=== PATIENT | female | born 1960 | race Caucasian/White ===

== ENCOUNTER 2020-06-08 08:30 | Outpatient (REF) | payer OTHER, SELFPAY ==
[2020-06-08 09:58] LABS: Anion Gap 13 (12-20); Blood Urea Nitrogen 18 mg/dL (9-16); Calcium 9.3 mg/dL (8.4-10.2); Carbon Dioxide 26 mmol/L (22-29); Chloride 104 mmol/L (96-108); Cholesterol 201 mg/dL; Estimated Glomerular Filt Rate > 60; Glucose Random 110 mg/dL (60-115); HDL Cholesterol 43 mg/dL; LDL Cholesterol Calculated 111 mg/dl; Potassium 4.3 mmol/L (3.3-5.1); Sodium 139 mmol/L (135-145); Triglycerides 238 mg/dL
== END 2020-06-08 08:31 | disposition home or self-care (01) ==
LOC: HO.LAB 08:30
PROVIDERS: PCP Internal Medicine; Visit Provider Internal Medicine
DX: E78.5 Hyperlipidemia, unspecified (principal); I10 Essential (primary) hypertension
CPT/HCPCS: 36415; 80048; 80061

== ENCOUNTER 2020-07-28 07:57 | Outpatient (REF) | payer OTHER, SELFPAY ==
[2020-07-28 08:59] LABS: Cholesterol 153 mg/dL; HDL Cholesterol 53 mg/dL; LDL Cholesterol Calculated 84 mg/dl; Triglycerides 83 mg/dL
== END 2020-07-28 07:58 | disposition home or self-care (01) ==
LOC: HO.LAB 07:57
PROVIDERS: PCP Internal Medicine; Visit Provider Internal Medicine
DX: E78.2 Mixed hyperlipidemia (principal)
CPT/HCPCS: 36415; 80061

== ENCOUNTER 2021-06-14 08:09 | Outpatient (REF) | payer OTHER, SELFPAY ==
[2021-06-14 09:05] LABS: Anion Gap 13 (12-20); Blood Urea Nitrogen 16 mg/dL (9-16); Calcium 9.6 mg/dL (8.4-10.2); Carbon Dioxide 27 mmol/L (22-29); Chloride 104 mmol/L (96-108); Estimated Glomerular Filt Rate > 60; Glucose Random 102 mg/dL (60-115); Potassium 4.1 mmol/L (3.3-5.1); Sodium 140 mmol/L (135-145)
== END 2021-06-14 08:10 | disposition home or self-care (01) ==
LOC: HO.LAB 08:09
PROVIDERS: PCP Internal Medicine; Visit Provider Internal Medicine
DX: Z00.00 Encounter for general adult medical examination without abnormal findings (principal); I10 Essential (primary) hypertension
CPT/HCPCS: 36415; 80048

== ENCOUNTER 2021-12-27 07:57 | Outpatient (REF) | payer OTHER, SELFPAY ==
--- NOTE | ~2021-12-27 | US_ITS ---
EXAMINATION: US VENOUS ULTRASOUND WITH DOPPLER LOWER EXTREMITY, BILATERAL CLINICAL INDICATION: Bilateral lower extremity varicose veins. COMPARISON: None. TECHNIQUE: Color flow triplex imaging and compression Doppler was performed to evaluate both the deep and the superficial systems of lower extremities, bilaterally. To evaluate the superficial system, the examination was performed in the upright position. Color-flow Doppler ultrasound and compression ultrasound were utilized. In addition, maneuvers were utilized to demonstrate reflux. FINDINGS: RIGHT: 1. DEEP VENOUS DOPPLER ULTRASOUND: Common Femoral Vein: Compressible, normal respiratory variation and augmented flow. Femoral vein: Compressible, normal color flow and augmentation. Popliteal Vein: Compressible, normal augmentation. Deep Reflux: There is no evidence of reflux in the deep system in either the common femoral vein or the popliteal vein. There is no evidence of a Moreland's cyst. 2. SUPERFICIAL VENOUS DOPPLER ULTRASOUND: GREAT SAPHENOUS VEIN: Saphenofemoral junction: 0.3 cm; No evidence of reflux. Proximal thigh: 0.3 cm; No evidence of reflux. Mid thigh: 0.3 cm; No evidence of reflux. Above knee: 0.3 cm; No evidence of reflux. At knee: 0.3 cm; No evidence of reflux. Below knee: 0.3 cm; No evidence of reflux. Mid calf: 0.2 cm; No evidence of reflux. Ankle: 0.2 cm; No evidence of reflux. DUPLICATED GREAT SAPHENOUS VEIN: None SMALL SAPHENOUS VEIN: Saphenopopliteal junction: 0.1 cm; No evidence of reflux. Mid calf: 0.1 cm; No evidence of reflux. Distal calf: 0.1 cm; No evidence of reflux. VEIN OF GIACOMINI: None Imaged. PERFORATORS: None Imaged VARICOSITIES: None Imaged LEFT: 1. DEEP VENOUS DOPPLER ULTRASOUND: Common Femoral Vein: Compressible, normal respiratory variation and augmented flow. Femoral vein: Compressible, normal color flow and augmentation. Popliteal Vein: Compressible, normal augmentation. Deep Reflux: There is no evidence of reflux in the deep system in either the common femoral vein or the popliteal vein. There is no evidence of a Moreland's cyst. 2. SUPERFICIAL VENOUS DOPPLER ULTRASOUND: GREAT SAPHENOUS VEIN: Saphenofemoral junction: 0.7 cm; No evidence of reflux. Proximal thigh: 0.3 cm; No evidence of reflux. Mid thigh: 0.3 cm; No evidence of reflux. Above knee: 0.2 cm; No evidence of reflux. At knee: 0.3 cm; No evidence of reflux. Below knee: 0.2 cm; No evidence of reflux. Mid calf: 0.2 cm; No evidence of reflux. Ankle: 0.2 cm; No evidence of reflux. DUPLICATED GREAT SAPHENOUS VEIN: None SMALL SAPHENOUS VEIN: Saphenopopliteal junction: 0.1 cm; No evidence of reflux. Mid calf: 0.1 cm; No evidence of reflux. Distal calf: 0.2 cm; No evidence of reflux. VEIN OF GIACOMINI: None Imaged. PERFORATORS: Distal thigh: 0.1 cm; No evidence of reflux. VARICOSITIES: None Imaged US/US venous duplex LE BI IMPRESSION: No evidence of reflux.
== END 2021-12-27 07:58 | disposition home or self-care (01) ==
LOC: HO.US 07:57
PROVIDERS: Visit Provider Surgery Vascular Surgery
DX: I83.893 Varicose veins of bilateral lower extremities with other complications (principal)
CPT/HCPCS: 93970

== ENCOUNTER 2022-06-21 07:57 | Outpatient (REF) | payer OTHER, SELFPAY ==
[2022-06-21 08:39] LABS: Anion Gap 12 (12-20); Blood Urea Nitrogen 23 mg/dL (9-16); Calcium 9.2 mg/dL (8.4-10.2); Carbon Dioxide 28 mmol/L (22-29); Chloride 106 mmol/L (96-108); Estimated Glomerular Filt Rate > 60; Glucose Random 98 mg/dL (60-115); Potassium 3.2 mmol/L (3.3-5.1); Sodium 143 mmol/L (135-145)
== END 2022-06-21 07:58 | disposition home or self-care (01) ==
LOC: HO.LAB 07:57
PROVIDERS: Referring Provider Internal Medicine; Visit Provider Internal Medicine
DX: M54.2 Cervicalgia (principal); I10 Essential (primary) hypertension
CPT/HCPCS: 36415; 80048

== ENCOUNTER 2022-12-05 11:00 | Outpatient (RCR) | payer OTHER, SELFPAY | END 2022-12-05 12:11 | disposition home or self-care (01) | LOC: HO.PT 11:00 | PROVIDERS: PCP Internal Medicine; Visit Provider Internal Medicine | DX: M54.2 Cervicalgia (principal) | CPT/HCPCS: 97110; 97140; 97161; 97530 ==

== ENCOUNTER 2023-06-06 10:25 | Outpatient (AMB) | payer OTHER, SELFPAY ==
--- NOTE | 2023-06-06 10:34 | MHC.OFFVIS ---
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 Patient reports her pain has been going on for about a year and is a 8 on the 1-10 pain scale. She reports she is using advil with a little relief. The patient describes her pain as sharp in nature. Most of the pain is along the lateral aspect of her left shoulder. She states that she experiences sharp pain in her left shoulder when her arm is in certain positions or when she tries to sleep on her right side. She has tried Tylenol and naproxen which gave her only mild relief. She has done physical therapy exercises which aggravated her pain. 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[facility] [place] Physical Exam Vital Signs: BMI result Body Mass Index 19.5 Extrem Other: Left shoulder examination shows slightly decreased range of motion when compared to her right shoulder, 4+ out of 5 strength with supraspinatus testing, positive impingement signs, tenderness over her acromioclavicular joint, no instability Results Reviewed Results Reviewed: X-rays of the patient's left shoulder show acromioclavicular joint narrowing as well as a type 3 acromion, no acute bony abnormalities Assessment & Plan Assessment & Plan (1) Left shoulder pain: Code(s): M25.512 - Pain in left shoulder Plan Ms. Zayas presents with progressively worsening left shoulder pain and weakness due to impingement syndrome and possible full-thickness rotator cuff tearing. Thus, I will send the patient for an MRI of her left shoulder for further evaluation. If she does have a full-thickness rotator cuff tear I will recommend surgical repair to optimize her future functional level. I will see her back after the MRI is completed to discuss the findings and treatment options. Feel free to call me at any time should questions regarding her orthopedic management arise. I spent 19 minutes in reviewing the patient's records and imaging studies, seeing the patient and documenting in the medical record. Orders: Orders XR shoulder LT min 2V Today M25.512 - Pain in left shoulder MR shoulder LT wo con Today M25.512 - Pain in left shoulder Coding Level of Care Code New Pt Level 2 (44599) Diagnoses Left shoulder pain M25.512
[2023-06-06 10:58] VITALS: BMI 19.5
== END 2023-06-06 11:29 | disposition home or self-care (01) ==
LOC: HO.HOS 10:31
PROVIDERS: PCP Internal Medicine; Visit Provider Orthopaedic Surgery
DX: M25.512 Pain in left shoulder (principal)
CPT/HCPCS: 99202

== ENCOUNTER 2023-06-06 11:33 | Outpatient (REF) | payer OTHER, SELFPAY ==
--- NOTE | ~2023-06-06 | XR_ITS ---
EXAMINATION: XR SHOULDER, LEFT CLINICAL INFORMATION: Pain COMPARISON: None available. TECHNIQUE: Two views of the left shoulder. FINDINGS: Visualized portions of the proximal humerus demonstrate no fracture. Humeral head demonstrates good articulation with the glenoid fossa. No significant degenerative changes of the shoulder. Visualized ribs and lung parenchyma are unremarkable. XR/XR shoulder LT min 2V IMPRESSION: Unremarkable radiographs of the left shoulder.
== END 2023-06-06 11:34 | disposition home or self-care (01) ==
LOC: HO.HOSX 11:33
PROVIDERS: Visit Provider Orthopaedic Surgery
DX: M25.512 Pain in left shoulder (principal)
CPT/HCPCS: 73030

== ENCOUNTER 2023-07-03 08:58 | Outpatient (REF) | payer OTHER, SELFPAY ==
--- NOTE | ~2023-07-03 | MR_ITS ---
EXAMINATION: MR SHOULDER WITHOUT CONTRAST, LEFT CLINICAL INFORMATION: Left shoulder pain. COMPARISON: None available. TECHNIQUE: MRI of the shoulder without contrast was performed on a high-field scanner. FINDINGS: ROTATOR CUFF: Mild undersurface fraying of the subscapularis tendon insertion. The rotator cuff is otherwise intact. There are 5 mm foci of low signal at the superficial aspect of both the subscapularis and infraspinatus tendon insertions with minimal adjacent edema compatible with calcific tendinitis. No muscle atrophy or fatty infiltration. BICEPS: Normal. CORACOACROMIAL ARCH: The undersurface of the acromion is curved with no subacromial spur. Degenerative cysts and marrow edema at the acromioclavicular joint. LABRUM/CAPSULE: Normal. GLENOHUMERAL JOINT/MARROW: Small degenerative cyst of the anterior humeral head. No joint effusion. MR/MR shoulder LT wo con IMPRESSION: 1. Subscapularis and infraspinatus calcific tendinitis. 2. Mild undersurface fraying of the subscapularis tendon insertion. The rotator cuff is otherwise intact. 3. Moderate acromioclavicular osteoarthritis.
== END 2023-07-03 08:59 | disposition home or self-care (01) ==
LOC: HO.MRI 08:58
PROVIDERS: PCP Internal Medicine; Visit Provider Orthopaedic Surgery
DX: M25.512 Pain in left shoulder (principal)
CPT/HCPCS: 73221

== ENCOUNTER 2023-07-19 14:39 | Outpatient (AMB) | payer OTHER, SELFPAY ==
[2023-07-19 14:47] VITALS: BMI 19.5
--- NOTE | 2023-07-19 14:47 | A.OFFVIS_ITS ---
Vital Signs 07/19/23 14:47 Height 5 ft 3 in Weight 110 lb BMI 19.5 Intake Visit Reasons: ov- MRI review Left shoulder Intake Note: Shauna is a 63 year old Right hand dominate female who presents for an MRI review of her Left shoulder. The patient states that her left shoulder pain is not constant. It has gotten somewhat better since her last visit. Continues to exercise as much as possible. 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 Physical Exam Vital Signs: BMI result Body Mass Index 19.5 Const Other: Well-nourished well-developed very friendly female awake alert and oriented x3 in no acute distress Extrem Other: Bilateral upper extremity examination shows good capillary refill, no skin lesions noted, normal sensation light touch Left shoulder examination shows almost full range of motion when compared to her right shoulder, 4+ out of 5 strength with supraspinatus testing, positive impingement signs, tenderness over her acromioclavicular joint, no instability Results Reviewed Results Reviewed: MRI of the patient's left shoulder show severe acromioclavicular joint narrowing, a type 3 acromion, signal change within the supraspinatus tendon most likely due to rotator cuff tendinosis Assessment & Plan Assessment & Plan (1) Impingement syndrome of left shoulder: Code(s): M75.42 - Impingement syndrome of left shoulder Category: Medical Plan Ms. Zayas presents with intermittent left shoulder pain due to impingement syndrome and acromioclavicular joint arthritis. I had a lengthy discussion with the patient regarding the treatment options. At this point the patient's symptoms are tolerable to her. The patient will follow-up on an as-needed basis should her symptoms worsen in any way. If the patient fails continued non operative treatments we will further discuss the risks and benefits of left shoulder surgery. That surgery would most likely involve left shoulder diagnostic arthroscopy with distal clavicle excision and acromioplasty. The patient will continue with her range of motion exercises in the meantime to prevent stiffness. Feel free to call me at any time should questions regarding her orthopedic management arise. I spent 19 minutes in reviewing the patient's records and imaging studies, seeing the patient and documenting in the medical record.
== END 2023-07-19 15:18 | disposition home or self-care (01) ==
PROVIDERS: PCP Internal Medicine; Visit Provider Orthopaedic Surgery
DX: M75.42 Impingement syndrome of left shoulder (principal)
CPT/HCPCS: 99212

== ENCOUNTER → 2023-07-19 14:39 | Outpatient (BNVA) | payer OTHER, SELFPAY | PROVIDERS: PCP Internal Medicine; Visit Provider Orthopaedic Surgery ==

== ENCOUNTER 2023-09-17 09:32 | Emergency (ER) | payer OTHER, SELFPAY ==
[2023-09-17 09:49] VITALS: BP 132/74; PULSE 58; RESP 14; TEMP 36.6; O2SAT 98; BMI 20.4
--- NOTE | 2023-09-17 10:58 | ED_ITS ---
HPI - General Adult General Chief complaint: Ear Problems Stated complaint: Ear pain Time Seen by Provider: 09/17/23 10:01 Source: patient Mode of arrival: ambulatory Limitations: no limitations History of Present Illness ED Provider: Alonzo Ware PA-C HPI narrative: 63 yold femalewith pmh of high cholesterol and HTN Presents to the ED for coughing, nasal congestion, and bilateral ear pain with right ear pain worse than the left ear pain. Patient recently traveled from the [place] on vacation. Patient denies any recent trauma, or swimming. Patient admits to eating wishes sounds and right ear. Patient did state she flu and the pain but negative for any bleeding from the ear. Patient denies placing Q-tip in the ear to cause any bleeding. Patient denies any chest pain, shortness of breath, pleurisy, leg swelling, calf pain, coughing up blood, slurred speech, facial droop, paralysis of extremities, loss of vision, or dizziness. Patient states slight nausea that resolved. Related Data Home Medications ?Medication ?Instructions ?Recorded ?Confirmed estradiol 0.0375 mg/24 hr patch transdermal 06/06/23 07/20/23 semiweekly transdermal patch (Nusrat) lisinopril 10 1 tab PO DAILY 06/06/23 07/20/23 mg-hydrochlorothiazide 12.5 mg tablet naproxen 500 mg tablet 500 mg PO BID 06/06/23 07/20/23 rosuvastatin 10 mg tablet 10 mg PO BEDTIME 06/06/23 07/20/23 Previous Rx's ?Medication ?Instructions ?Recorded amoxicillin 875 mg-potassium 1 tab PO Q12H 10 days #20 tabs 09/17/23 clavulanate 125 mg tablet Allergies Allergy/AdvReac Type Severity Reaction Status Date / Time codeine Allergy Mild Nausea Verified 09/17/23 09:51 Review of Systems Review of Systems: Bilateral ear pain, whooshing sound in right ear, dry cough, nasal congestion, chills Yes all other systems are reviewed and are negative [facility] Past Medical History Surgical History Hx of section History of hysterectomy (Unknown) Social History Social History Advance Directives: No Advance Directives Information Provided: No Do you have a plan to hurt others: No Plan 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 Physical Exam ED Vital Signs: Vital Signs - 24 hr 09/17/23 09:49 09/17/23 11:40 Temperature 97.8 F 97.7 F Pulse Rate 58 61 Respiratory Rate 14 16 Blood Pressure 132/74 145/77 H Pulse Oximetry 98 98 Oxygen Delivery Method Room Air Room Air BMI result Body Mass Index 20.4 Const General: cooperative, healthy appearing, comfortable, no acute distress, well developed, alert and awake Orientation/consciousness: patient oriented x3 HENGA Head: Yes normal to inspection, Yes No palpable skull fracture present, Yes normocephalic and Yes atraumatic Ears: hearing grossly normal bilaterally, external ears normal, TM normal on the left, EAC's normal, mastoids normal, no periauricular adenopathy and TM abnormal erythematous on the right Throat: Yes posterior oropharynx normal, Yes tonsils normal and Yes uvula midline Eyes Other: negative nystagmus Neck Neck: Yes normal visual inspection, Yes full ROM, Yes no lymphadenopathy, Yes no meningeal signs, Yes trachea midline, Yes supple, No anterior neck swelling and No tender Chest Chest palpation & inspection: normal inspection of the chest and normal palpation of entire chest wall Resp Effort & Inspection: normal respiratory effort and able to speak in complete sentences Auscultation: clear to auscultation bilaterally Cardio Jugular venous distension: no JVD Heart sounds: S1 normal heart sound present and S2 normal heart sound present GI Inspection: Yes normal to inspection Palpation (GI): Soft to palpation, not firm, nontender, no guarding and not rigid General: No CVA tenderness Back/Spine/Pelvis Back: No CVA tenderness and No back tenderness Skin General skin exam: no rashes or lesions noted, elasticity normal and turgor normal Neuro Other: NIH score is 0. General: patient oriented x3, gait normal, tone normal, moves all extremities, Normal light touch and pain sensation, no meningeal signs, no focal motor deficits, CN's II-XI intact bilaterally and normal sensation to monofilament Extrem Other: bilateral lower extremity negative for swelling, pitting edema, or calf tenderness General: Yes normal to inspection, Yes full ROM and Yes capillary refill normal Psych Appearance: grossly normal, well kempt and not disheveled Medical Decision Making Medical Decision Making MDM Narrative: 63-year-old female history of high blood pressure high cholesterol presents to ED for dry cough, nasal congestion, and bilateral ear pain worse on the right. Presently negative for signs of stroke. Negative for signs of myocardial infarction or pulmonary embolus. positive for right ear tympanic membrane erythema. We will do COVID influenza RSV swab. 11:21am: Patient is positive for COVID. patient well-appearing. Patient also will be treated as otitis media. Patient explained worrisome signs and informed to follow-up immediately in the ER. Not suspecting PE or pneumonia. Not suspecting stroke. Not suspect myocarditis. Differential Diagnosis Differential Diagnoses: The differential diagnosis associated with the presentation includes ( COVID, influenza, RSV, otitis media) Lab Data [facility] Lab Attestation statement: I reviewed the patient's lab results. Labs: Lab Results 09/17/23 Range/Units 10:16 Influenza Type A (PCR) NEGATIVE (Negative) Influenza Type B (PCR) NEGATIVE (Negative) RSV RNA Qual (PCR) NEGATIVE (Negative) SARS-CoV-2 RNA (RT-PCR) POSITIVE A (Negative) Independent Historian Clinical information obtained from an independent historian. History obtained from or confirmed by: Other ( patient) External Record Review External record reviewed: Other ( prior visits) Prescription Management I considered prescription management with: Antibiotic Discharge Plan Discharge Clinical Impression: Otitis media, COVID-19 Patient Disposition: Home, Self-Care Instructions: Ear Infection (ED), COVID-19 (Coronavirus Disease 2019) (ED) Additional Instructions: you tested positive for COVID. Recommend rest at home and oral hydration. Return to the ED immediately for any chest pain, shortness of breath, coughing up blood, weakness, dizziness, severe ear pain, sore throat, drooling, change in voice, or any other concerning symptoms. Recommend follow-up with primary care provider Prescriptions: New amoxicillin-pot clavulanate 875-125 mg tablet 1 tab PO Q12H 10 Days Qty: 20 0RF No Action rosuvastatin 10 mg tablet 10 mg PO BEDTIME estradiol [Nusrat] 0.0375 mg/24 hr patch semiweekly transdermal lisinopril-hydrochlorothiazide 10-12.5 mg tablet 1 tab PO DAILY naproxen 500 mg tablet 500 mg PO BID Stand Alone Forms: Work/School Release Interventions: ED Discharge Assessment Last Done: 09/17/23 11:40 Discharge Date/Time: 09/17/23 11:42 Print Language: [place] Citizen
[2023-09-17 11:04] LABS: Influenza A PCR NEGATIVE (Negative); Influenza B PCR NEGATIVE (Negative); Resp Syncy Virus RNA Qual PCR NEGATIVE (Negative); SARS COV2 PCR INHOUSE POSITIVE (Negative)
[2023-09-17 11:40] VITALS: BP 145/77; PULSE 61; RESP 16; TEMP 36.5; O2SAT 98
== END 2023-09-17 11:42 | disposition home or self-care (01) ==
PROVIDERS: Physician Assistant; Emergency Provider Emergency Medicine; PCP Internal Medicine
DX: U07.1 COVID-19 (principal); H92.03 Otalgia, bilateral; H66.93 Otitis media, unspecified, bilateral; R09.81 Nasal congestion; Z79.899 Other long term (current) drug therapy
CPT/HCPCS: 0241U; 99283

== ENCOUNTER 2023-10-11 09:22 | Outpatient (REF) | payer OTHER, SELFPAY ==
[2023-10-11 10:12] LABS: MANUAL DIFF FLAG NO
[2023-10-11 10:56] LABS: Basophils Absolute Auto 0.1 X10*3/uL (0.0-0.2); Basophils Percent Auto 1.5 % (0-2); Eosinophils Absolute Auto 0.2 X10*3/uL (0.0-0.4); Eosinophils Percent Auto 2.5 % (0-4); Hematocrit 40.8 % (37.0-47.0); Hemoglobin 13.8 g/dl (12.0-16.0); Imm Gran Abs Auto 0.03 X10*3/uL (0.00-0.03); Imm Gran Pct Auto 0.4 % (0.0-0.4); Lymphocytes Absolute Auto 2.9 X10*3/uL (1.2-4.9); Lymphocytes Percent Auto 42.7 % (20-40); Mean Corpuscular HGB Conc 33.8 g/dl (31.0-35.0); Mean Corpuscular Hemoglobin 28.8 pg (27.0-33.0); Mean Platelet Volume 8.9 fL (9.4-12.3); Monocytes Absolute Auto 0.6 X10*3/uL (0.1-1.2); Monocytes Percent Auto 8.2 % (2-11); Neutrophils Percent Auto 44.7 % (45-73); Platelet Count 255 X10*3/uL (160-400); White Blood Count 6.7 X10*3/uL (4.8-10.8)
[2023-10-11 11:08] LABS: Estimated Average Glucose 117 mg/dL; Hemoglobin A1c % 5.7 % (<6.0)
[2023-10-11 11:39] LABS: Alanine Aminotransferase 22 U/L (0-31); Albumin Level 4.5 g/dL (3.5-5.0); Alkaline Phosphatase 49 U/L (39-117); Anion Gap 12 (12-20); Aspartate Amino Transferase 26 U/L (5-31); Bilirubin Total 0.6 mg/dL (0.0-1.0); Blood Urea Nitrogen 15 mg/dL (9-16); Calcium 9.8 mg/dL (8.4-10.2); Carbon Dioxide 28 mmol/L (22-29); Chloride 102 mmol/L (96-108); Cholesterol 172 mg/dL (<200); Estimated Glomerular Filt Rate > 60; Glucose Random 98 mg/dL (60-115); HDL Cholesterol 52 mg/dL (>40); Iron 74 mcg/dL (30-160); LDL Cholesterol Calculated 91 mg/dL (<100); Magnesium 2.2 mg/dL (1.6-2.6); Percent Iron Saturation 23 % (15-50); Potassium 3.8 mmol/L (3.3-5.1); Sodium 138 mmol/L (135-145); Total Iron Binding Capacity 323 mcg/dL (228-428); Total Protein 7.6 g/dL (6.5-8.0); Triglycerides 148 mg/dL (<150); Unsaturated Iron Binding 249 ug/dL
[2023-10-11 11:56] LABS: Ferritin 133 ng/mL (10-250); Vitamin D 25-OH Total 89.7 ng/mL (>30)
== END 2023-10-11 09:23 | disposition home or self-care (01) ==
LOC: HO.LAB 09:22
PROVIDERS: PCP Internal Medicine; Visit Provider Physician Assistant Medical
DX: Z00.00 Encounter for general adult medical examination without abnormal findings (principal); M79.671 Pain in right foot; Z13.0 Encounter for screening for diseases of the blood and blood-forming organs and certain disorders involving the immune mechanism; E78.5 Hyperlipidemia, unspecified; M85.80 Other specified disorders of bone density and structure, unspecified site; Z13.1 Encounter for screening for diabetes mellitus
CPT/HCPCS: 36415; 80053; 80061; 82306; 82728; 83036; 83540; 83735; 85025

== ENCOUNTER 2024-01-11 09:44 | Outpatient (REF) | payer OTHER, SELFPAY ==
[2024-01-15 00:23] LABS: A. Phagocytphilium DNA,RT-PCR NOT DETECTED (NOT DETECTED); Babesia Microti DNA, RT-PCR NOT DETECTED (NOT DETECTED); Borrelia Miyamotoi,DNA RT-PCR NOT DETECTED (NOT DETECTED); E.Chaffeensis DNA RT-PCR NOT DETECTED (NOT DETECTED); Lyme(Borrelia ssp)DNA RT-PCR NOT DETECTED (NOT DETECTED)
== END 2024-01-11 09:45 | disposition home or self-care (01) ==
LOC: HO.LAB 09:44
PROVIDERS: PCP Internal Medicine; Visit Provider Internal Medicine
DX: M79.10 Myalgia, unspecified site (principal)
CPT/HCPCS: 36415; 86618; 86666; 86753; 87468; 87469; 87478; 87484; 87798

== ENCOUNTER 2024-02-29 12:30 | Outpatient (AMB) | payer OTHER, SELFPAY ==
--- NOTE | 2024-02-29 13:05 | MHC.OFFWIV ---
Intake Vital Signs 02/29/24 13:06 Weight 128 lb BP 118/70 Blood Pressure Location Lt brachial Position Sitting Pulse 86 Pulse Source Pulse Oximeter Temp 98.6 F Temp Source Oral Pulse Oximetry (%) 98 Oxygen Delivery Method Room Air Intake Visit Reasons: EP cough 5 weeks Intake Note: Patient here for a productive cough. Patient Tobacco Use Status: Former Tobacco user Allergies codeine Allergy (Mild, Verified 02/29/24 13:17) Nausea Medication List - Last Reconciled 02/29/24 by Robert Hammer MD estradiol (Nusrat) patches transdermal lisinopril-hydrochlorothiazide 10-12.5 mg 1 tab PO DAILY naproxen 500 mg PO BID rosuvastatin 10 mg PO BEDTIME Do you need a note to return to daycare/school/sports/work: No HPI EP cough 5 weeks HPI Details 64-year-old female presents to the office for a sick visit. Patient complains of an irritating cough for the past 5 weeks. Nonproductive in nature. No associated shortness of breath. Come boyfriend recently came down with bronchitis. Nonsmoker. 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[facility] [place], Right hand dominate Physical Exam Vital Signs: Last Vital Signs Temp 98.6 F 02/29/24 13:06 Pulse 86 02/29/24 13:06 BP 118/70 02/29/24 13:06 Pulse Ox 98 02/29/24 13:06 Oxygen Delivery Method Room Air 02/29/24 13:06 Const General: cooperative and healthy appearing Nutritional Appearance: well nourished Orientation/consciousness: patient oriented x3 Limitations: no limitations HEENT Head: Yes normal to inspection Eyes General: appearance normal, both eyes and all related structures Neck Neck: Yes normal visual inspection Chest Chest palpation & inspection: normal palpation of entire chest wall Resp Effort & Inspection: normal respiratory effort Neuro General: patient oriented x3 Assessment & Plan Assessment & Plan (1) Cough: Code(s): R05.9 - Cough, unspecified Plan x-ray images personally reviewed by me. no infiltrate seen. Cough could be of infectious etiology. Antibiotics and prednisone called in. If symptoms do not improve to follow-up here. Orders: Orders XR chest 2V Today R05.9 - Cough, unspecified Coding Level of Care Code Est Pt Level 3 (34564) Diagnoses Cough R05.9
[2024-02-29 13:06] VITALS: BP 118/70; PULSE 86; TEMP 37; O2SAT 98
== END 2024-02-29 14:02 | disposition home or self-care (01) ==
PROVIDERS: PCP Internal Medicine; Visit Provider Internal Medicine
DX: R05.9 Cough, unspecified (principal)

== ENCOUNTER 2024-02-29 12:30 | Outpatient (REF) | payer OTHER, SELFPAY | END 2024-02-29 12:31 | disposition home or self-care (01) | LOC: HO.HMGCX 12:30 | PROVIDERS: PCP Internal Medicine; Visit Provider Internal Medicine | DX: R05.9 Cough, unspecified (principal) | CPT/HCPCS: 71046 ==

== ENCOUNTER 2024-06-04 09:06 | Outpatient (REF) | payer OTHER, SELFPAY ==
--- OUTSIDE RECORDS SUMMARY | 2024-06-04 10:00 | XMS_ITS | Patient Health Record ---
Author Organization [employer] [facility] Address [address] [address] Care Team Providers Care Chief Relay Tester Name Role Phone Ketan Steel MD Primary Care Provider Maribel Dodge Unavailable [phone] Allergies Allergen (clinical drug ingredient) Drug/Non Drug Allergy documented on EMR Reaction Allergy Type Onset Date Status codeine Codeine Nausea Drug Allergy Active Reason For Referral No Information Medications Medication SIG (Take, Route, Frequency, Duration) Notes Start Date End Date Status Rosuvastatin Calcium 10 MG Oral for 90 Active Lisinopril-hydroCHLOROthiaz gaudencio 10-12.5 MG 1 tablet Orally Once a day Active Multi Vitamin Active Estradiol 0.0375 MG/24HR 1 patch to skin Transdermal TWICE WEEKLY for 90 days 03/27/2023 Active Social History Tobacco Use: Social History Observation Description Date Details (start date - stop date) Former Smoker NA - NA AUDIT-C (Standard) Question Answer Notes Did you have a drink containing alcohol in the p ast year? No Points 0 Interpretation Negative Tobacco Control (Standard) Question Answer Notes Tobacco use: Former smoker How long has it been since you last smoked? Grea ter than 10 years Problems Problem Type SNOMED Code ICD Code Onset Dates Problem Status W/U Status Risk Notes Problem Menopause (963295108) Menopausal and female climacteric states (N95.1) Active confirmed Problem Benign essential hypertension (0393056) Essential hypertension, benign (401.1) Active confirmed Major Problem Dysplasia of cervix (45440388) Dysplasia of cervix, unspecified (622.10) Active confirmed Diag Problem Menopausal symptom (30287497) Symptomatic menopausal or female climacteric states (627.2) Active confirmed Diag Problem Gynecological examination normal (982603713235070) Routine gynecological examination (V72.31) Active confirmed Major Problem Screening for malignant neoplasm of colon (692193427) Special screening for malignant neoplasms, colon (V76.51) Active confirmed Major Vital Signs Temperature 97.9 degrees Fahrenheit 05/08/2024 Blood pressure diastolic 80 mm Hg 05/08/2024 Height 62.5 in 05/08/2024 Blood pressure systolic 122 mm Hg 05/08/2024 Weight 105 lbs 05/08/2024 BMI 18.9 kg/m2 05/08/2024 Encounters Encounter Location Date Provider Diagnosis [facility] [employer] [place] [address] [address] [place] [address] 05/08/2024 Maribel Sparrow Menopausal and female climacteric states N95.1 [place] [address] [address] [place] [address] 07/04/2023 Maribel Sparrow [facility] [email or web address] [address] 05/01/2024 Maribel Sparrow [facility] [place] [address] [address] [address] 05/08/2024 Maribel Sparrow Assessments Encounter Date Diagnosis (ICD Code) Assessment Notes Treatment Notes Treatment Clinical Notes Section Notes 05/08/2024 Menopausal and female climacteric states (ICD-10 - N95.1) DISCUSSED S/SX OF MENOPAUSE INCLUDING HOT FLASHES AND NIGHT SWEATS. I CANNOT EXPLAIN HER NON RESPONSE TO HIGHER DOSES OF ERT. DISCUSSED TX OPTIONS INCLUDING VEOZAH, ITS BENEFITS AND RISKS. AFTER THOROUGH DISCUSSION, PAT DECIDED NOT TO EVEN TRY VEOZAH. DISCUSSED REFERRAL TO [facility] FOR MORE THOROUGH EVALUATION OF HER MENOPAUSAL SYMPTOMS AND TX OPTIONS INCLUDING ERT. PAT AGREED. WE WILL REFER HER. Plan Of Treatment Pending Test Test Name Order Date MAMMOGRAM, SCREENING 03/09/2021 MAMMOGRAM, SCREENING 03/16/2022 MAMMOGRAM, SCREENING 03/27/2023 MAMMOGRAM, SCREENING 01/27/2015 Urinalysis 07/26/2017 BONE DENSITY 03/27/2023 MM Digital Mammo Screening 03/08/2020 MM Digital Mammo Screening 03/09/2021 MM Digital Mammo Screening 03/16/2022 MM Digital Mammo Screening 03/27/2023 Next Appt Details Provider Name:Maribel quiroz, 07/23/2024 01:40:00 PM, [address] [facility], [address], [place], [address], Insurance Providers Payer Name Payer Address Payer Phone Subscriber Number Group Number Insured Name Patient Relationship to Insured Coverage Start Date Coverage End Date [employer] [place] [address] [address] [place] [address] [id number] NATHALIA DOUGLAS Self - patient is the insured Medical (General) History Medical History History ICD Code Dysplasia of cervix uteri, unspecified N 87.9 Menopausal and female climacteric states N95.1 Essential (primary) hypertension I10 Hematocolpos N89.7 Hormone replacement therapy (postmenopau heaven) Z79.890 Other specified disorders of bone densit y and structure, multiple sites M85.89 Surgical History Surgery Date(Month/Year) Colonoscopy Hysterectomy x 2 [place] teeth Hospitalization History Reason Date(Month/Year) See Surgical Hx Child
--- OUTSIDE RECORDS SUMMARY | 2024-06-04 10:01 | XMS_ITS ---
Author Organization [employer] Address [address] [facility] [address] [place] [address] Care Team Providers Care Radiology Resident Name Role Phone Ketan Steel MD Primary Care Provider Maribel Dodge [phone] REASON FOR VISIT [facility] Encounters Encounter Location Date Provider Diagnosis [facility] [employer] [address] [facility] [address] [place] [address] 05/08/2024 Maribel Sparrow Plan Of Treatment Next Appt Details Provider Name:Maribel quiroz, 07/23/2024 01:40:00 PM, [address] [facility], [address], [place], [address], Progress Notes * JULIO CESAR DOUGLASADOB:1960 (64 yo F)Acc No.[id number]:05/08/2024 Patient:?VONDAPhamERICJULIO CESAR McintoshA :1960???Age:64 Y???Sex:Female Address:[address] [place], [address] * true * Date:? Generated for Alyi tiburcio/David/eTransmitting on:?06/04/2024 10:00 AM EST
--- OUTSIDE RECORDS SUMMARY | 2024-06-04 10:01 | XMS_ITS ---
Author Organization [facility] [employer] Address [address] [facility] [address] [place] [address] Care Team Providers Care Snack Foods Mixer Operator Name Role Phone Ketan Steel MD Primary Care Provider Maribel Dodge [phone] REASON FOR VISIT QUESTION ABOUT MEDS FOR HOTFLASHES Encounters Encounter Location Date Provider Diagnosis [facility] [employer] [address] [place] [address] 05/01/2024 Maribel Sparrow Plan Of Treatment Next Appt Details Provider Name:Maribel quiroz, 07/23/2024 01:40:00 PM, [address] [facility], [facility] [address], [place], [address], Progress Notes * JULIO CESAR DOUGLASADOB:1960 (64 yo F)Acc No.[id number]:05/01/2024 Patient:?VONDAPhamDARLENEJULIO CESARA :1960???Age:64 Y???Sex:Female Address:[address] [place] [address], [place] [address] * true * Date:? Generated for Macho dey/David/eTransmitting on:?06/04/2024 10:00 AM EST
--- OUTSIDE RECORDS SUMMARY | 2024-06-04 10:01 | XMS_ITS ---
Author Organization [employer] [facility] Address [address] [facility] [address] [place] [address] Care Team Providers Care Dry Wall Finisher Name Role Phone Ketan Steel MD Primary Care Provider Maribel Dodge Unavailable [phone] Allergies Allergen (clinical drug ingredient) Drug/Non Drug Allergy documented on EMR Reaction Allergy Type Onset Date Status codeine Codeine Nausea Drug Allergy Active REASON FOR VISIT VEOZAH TALK Medications Medication SIG (Take, Route, Frequency, Duration) Notes Start Date End Date Status Multi Vitamin Active Estradiol 0.0375 MG/24HR 1 patch to skin Transdermal TWICE WEEKLY for 90 days 03/27/2023 Active Rosuvastatin Calcium 10 MG Oral for 90 Active Lisinopril-hydroCHLOROthiaz gaudencio 10-12.5 MG 1 tablet Orally Once a day Active Social History Tobacco Use: Social History [...] Status W/U Status Risk Notes Problem Menopause (096210245) Menopausal and female climacteric states (N95.1) Active confirmed Vital Signs Height 62.5 in 05/08/2024 Weight 105 lbs 05/08/2024 BMI 18.9 kg/m2 05/08/2024 Blood pressure systolic 122 mm Hg 05/08/19 25 Blood pressure diastolic 80 mm Hg 025 Temperature 97.9 degrees Fahrenheit 05/08/19 25 Encounters Encounter Location Date Provider Diagnosis [facility] [address] [facility] [address] [place] [address] 05/08/2024 Maribel Sparrow Menopausal and female climacteric states N95.1 Assessments Encounter Date Diagnosis (ICD Code) Assessment [...] TO EVEN TRY VEOZAH. DISCUSSED REFERRAL TO [facility] FOR MORE THOROUGH EVALUATION OF HER MENOPAUSAL SYMPTOMS AND TX OPTIONS INCLUDING ERT. PAT AGREED. WE WILL REFER HER. Plan Of Treatment Treatment Notes Assessment Notes Menopausal and female climacteric states DISCUSSED S/SX OF MENOPAUSE INCLUDING HOT FLASHES AND NIGHT SWEATS. I CANNOT EXPLAIN HER NON RESPONSE TO HIGHER DOSES OF ERT. DISCUSSED TX OPTIONS INCLUDING VEOZAH, ITS BENEFITS AND RISKS. AFTER THOROUGH DISCUSSION, PAT DECIDED NOT TO EVEN TRY VEOZAH. DISCUSSED REFERRAL TO [facility] FOR MORE THOROUGH EVALUATION OF HER MENOPAUSAL SYMPTOMS AND TX OPTIONS INCLUDING ERT. PAT AGREED. WE WILL REFER HER. Next Appt Details Follow Up: prn, Reason: Provider Name:Maribel quiroz, 07/23/2024 01:40:00 PM, [address] [employer], [address], [place], [address], Progress Notes * ALFONSO DOUGLASB:1960 (64 yo F)Acc No.[id number]:05/08/2024 PROGRESS NOTES Patient:?NATHALIA DOUGLAS Appointment Provider:?Maribel quiroz M.D. :1960???Age:64 Y???Sex:Female D ate:05/08/2024 Address:[address] [place] [address] Pcp:Ketan Steel MD Subjective: * Chief Complaints: * ???VEOZAH TALK * HPI: ???New/Follow-up Patient Consult:?S/P BETZAIDA LEFT S&O IN 2001 FOR INTRACTABLE UTERINE BLEEDING.? SHE DID WELL FOR SEVERAL YEARS AND ENTERED MENOPAUSE IN 2008.? SHE WAS GIVEN ESTRADIOL PATCH TO TRY THEN BUT USED THIS ONLY FOR A FEW MONTHS.? WHEN MORE SEVERE MENOPAUSAL SYMPTOMS WERE NOTED IN 2011, ERT WAS RESTARTED AND THE DOSE GRADUALLY INCREASED TO 0.075 MG ESTRADIOL PATCHES TWICE WEEKLY TO HELP DECREASE WORSENING MENOPAUSAL SYMPTOMS.? BY 2014, THE PAT WAS MUCH BETTER AND THE DOSE GRADUALLY REDUCED TO 0.05 MG TWICE WEEKLY.? SHE STAYED ON THIS DOSE UNTIL 2018.? SHE STOPPED THE PATCH DUE TO GREGORIA COST AND DIFFICULTY IN GETTING THIS FILLED.? MENOPAUSAL SYMPTOMS RECURRED WITH A VENGEANCE SPECIALLY HOT FLASHES AND NIGHT SWEATS.?? ESTRADIOL PATCH WAS RESTARTED IN 2018 AND GRADUALLY INCREASED TO 0.075 MG TWICE WEEKLY BY 2019.? HER HOT FLASHES AND NIGHT SWEATS CONTINUED UNABATED AND SHE GRADUALLY DECREASED ERT DOSE AND DISCONTINUED ERT? A MONTH AGO.? SHE FELT ERT HAS NOT HELPED HER SYMPTOMS AND WANTED TO TRY DIFFERENT OPTIONS.? SHE TOOK OTC MEDICATIONS LIKE BONAFIDE AND ESTROVEN WHICH DID NOT HELP EITHER.? SHE HAS HEARD ABOUT VEOZAH AND WANTS TO TRY THIS. SHE HAS BEEN IN A NEW RELATIONSHIP FOR 2 YEARS.? SHE DENIES DYSPAREUNIA AND LOSS OF LIBIDO.? HER MAIN ISSUE IS THAT OF HOT FLASHES AND NIGHT SWEATS WHICH CAUSES INSOMNIA AND THIS IN TURN LEADS TO FATIGUE.? SHE FEELS THAT IF HOT FLASHES ARE DIMINISHED, EVERYTHING ELSE WILL FALL INTO PLACE. * ROS:?general:?no?chest pain.?no?palpitations.?no?headache.?no?cough.?no?shortness of breath.?no?fever.?no?unexplained weight loss.?no?nausea/vomiting.?no?change in bowel movements.?no blood in stool.?no?genitourinary complaints.?no?skin complaints.? * Medical History:? 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 Control:?None.?Colonoscopy?2019, 05/2017 Cologuard with PCP, yes 2006.?Bone Density:?05/16/23 Osteopenia.? * OB History:?Total pregnancies?4.?Total living children?2.?(s)?2.? * Surgical History:?Colonoscop y Hysterectomy x 2 [place] teeth * Hospitalization/Major Diagno stic Procedure:?Child See Surgical Hx * Family History:?Mother: sandra delgado, well, diagnosed with Other specified conditions influencing health status.?Father: alive, well.?Maternal aunt: brain cancer, colon cancer.? * Social History:?Tobacco Use:?Tobacco Control (Standard)?Tobacco use:?Former smoker ?How long has it been since you last smoked??Greater than 10 years ???Sexual History:?Sexual History?Had sex in the past 12 months (vaginal, oral, or anal)?: No.?Details of Sexual History?Are you sexually active??No ???Drugs/Alcohol:?Drugs?Have you used drugs other than those for medical reasons in the past 12 months??No ???Miscellaneous:?Children: yes, 2. ?Domestic violence: no. ?Exercise: yes, walking. ?Home smoke detector use: yes. ?Living with: spouse. ?Marital status: . ?Natural support system: yes. ?Occupation: Works full-time. ?Sexual abuse: no. ?Sexually active: no, monogamous relationship. ?Verbal abuse: no. ???Drug/Alcohol:?AUDIT-C (Standard)?Did you have a drink containing alcohol in the past year??No ?Points?0 ?Interpretation?Negative * Medications:?TakingLisinopri l-hydroCHLOROthiazide 10-12.5 MG Tablet 1 tablet Orally Once a day Rosuvastatin Calcium 10 MG Tablet Oral Multi Vitamin Estradiol 0.0375 MG/24HR Patch Twice Weekly 1 patch to skin Transdermal TWICE WEEKLY Taking Lisinopril-hydroCHLOROthiazide 10-12.5 MG Tablet 1 tablet Orally Once a day Taking Rosuvastatin Calcium 10 MG Tablet Oral Taking Multi Vitamin Taking Estradiol 0.0375 MG/24HR Patch Twice Weekly 1 patch to skin Transdermal TWICE WEEKLY DiscontinuedEstradiol 0.075 MG/24HR Patch Twice Weekly 1 patch to skin Transdermal Two times a Week alternating with 0.05 patch twice weekly Estradiol 0.05 MG/24HR Patch Twice Weekly 1 patch to skin Transdermal Two times a Week Estradiol 0.0375 MG/24HR Patch Twice Weekly 1 patch to skin Transdermal Two times a Week Medication List reviewed and reconciled with the patientDiscontinued Estradiol 0.075 MG/24HR Patch Twice Weekly 1 patch to skin Transdermal Two times a Week alternating with 0.05 patch twice weekly Discontinued Estradiol 0.05 MG/24HR Patch Twice Weekly 1 patch to skin Transdermal Two times a Week Discontinued Estradiol 0.0375 MG/24HR Patch Twice Weekly 1 patch to skin Transdermal Two times a Week Medication List reviewed and reconciled with the patient * Allergies:?Codeine: Nausea - Allergyno[Allergies Verified] Objective: * Vitals:?Ht: 62.5 in, Wt:105l bs, BMI:18.9Index, BP:122/80mm Hg, Temp:97.9F. Assessment: * Assessment: 1.?Menopausal and female cli macteric states - N95.1 (Primary)??? Plan: * Treatment: * Procedure Codes:? * Follow Up:?prn * Images: Billing Information: * Visit Code:? * Procedure Codes:? * Sign off status: Completed true * Appointment Provider:?Maribel Sparrow M.D. Date:?05/08/2024 Generated for Macho dey/David/eTransmitting on:?06/04/2024 10:00 AM EST History and Physical Notes * HPI (History of Present Illness) Category Sub-Category Detail Notes Category Not es New/Follow-up Patient Consult S/P BETZAIDA LEFT S&O IN 2001 FOR INTRACTABLE UTERINE BLEEDING. SHE DID WELL FOR SEVERAL YEARS AND ENTERED MENOPAUSE IN 2008. SHE WAS GIVEN ESTRADIOL PATCH TO TRY THEN BUT USED THIS ONLY FOR A FEW MONTHS. WHEN MORE SEVERE MENOPAUSAL SYMPTOMS WERE NOTED IN 2011, ERT WAS RESTARTED AND THE DOSE GRADUALLY INCREASED TO 0.075 MG ESTRADIOL PATCHES TWICE WEEKLY TO HELP DECREASE WORSENING MENOPAUSAL SYMPTOMS. BY 2014, THE PAT WAS MUCH BETTER AND THE DOSE GRADUALLY REDUCED TO 0.05 MG TWICE WEEKLY. SHE STAYED ON THIS DOSE UNTIL 2018. SHE STOPPED THE PATCH DUE TO GREGORIA COST AND DIFFICULTY IN GETTING THIS FILLED. MENOPAUSAL SYMPTOMS RECURRED WITH A VENGEANCE SPECIALLY HOT FLASHES AND NIGHT SWEATS. ESTRADIOL PATCH WAS RESTARTED IN 2018 AND GRADUALLY INCREASED TO 0.075 MG TWICE WEEKLY BY 2019. HER HOT FLASHES AND NIGHT SWEATS CONTINUED UNABATED AND SHE GRADUALLY DECREASED ERT DOSE AND DISCONTINUED ERT A MONTH AGO. SHE FELT ERT HAS NOT HELPED HER SYMPTOMS AND WANTED TO TRY DIFFERENT OPTIONS. SHE TOOK OTC MEDICATIONS LIKE BONAFIDE AND ESTROVEN WHICH DID NOT HELP EITHER. SHE HAS HEARD ABOUT VEOZAH AND WANTS TO TRY THIS. SHE HAS BEEN IN A NEW RELATIONSHIP FOR 2 YEARS. SHE DENIES DYSPAREUNIA AND LOSS OF LIBIDO. HER MAIN ISSUE IS THAT OF HOT FLASHES AND NIGHT SWEATS WHICH CAUSES INSOMNIA AND THIS IN TURN LEADS TO FATIGUE. SHE FEELS THAT IF HOT FLASHES ARE DIMINISHED, EVERYTHING ELSE WILL FALL INTO PLACE.
[2024-06-04 10:30] LABS: Cholesterol 185 mg/dL (<200); HDL Cholesterol 46 mg/dL (>40); LDL Cholesterol Calculated 90 mg/dL (<100); Triglycerides 246 mg/dL (<150)
[2024-06-05 07:13] LABS: LDL Cholesterol Direct 99 mg/dL (<100)
[2024-06-05 07:39] LABS: DHEA Sulfate 66 mcg/dL (9-118)
[2024-06-09 15:52] LABS: Lipoprotein A 32 nmol/L (<75)
[2024-06-11 06:04] LABS: Dihydrotestosterone 6 ng/dL (< OR = 20)
[2024-06-11 16:14] LABS: Pregnenolone, LC/MS 11 ng/dL (22-237)
[2024-06-11 17:28] LABS: Testosterone, Free 1.6 pg/mL (0.1-6.4); Testosterone, Total 10 ng/dL (2-45)
[2024-06-15 13:52] LABS: Progesterone <0.1 ng/mL
[2024-06-19 00:23] LABS: Estradiol Ultra Sensitive 4 pg/mL
== END 2024-06-04 09:07 | disposition home or self-care (01) ==
LOC: HO.LAB 09:06
PROVIDERS: PCP Internal Medicine; Visit Provider Nurse Practitioner Family
DX: E78.5 Hyperlipidemia, unspecified (principal); N95.1 Menopausal and female climacteric states
CPT/HCPCS: 36415; 80061; 82627; 82642; 82670; 83090; 83695; 83721; 84143; 84144; 84402; 84403; 86140

== ENCOUNTER 2024-09-24 09:08 | Outpatient (REF) | payer OTHER, SELFPAY ==
--- OUTSIDE RECORDS SUMMARY | 2024-09-24 09:57 | XMS_ITS | Patient Health Record ---
Author Organization [facility] Address [address] [place] [address] Care Team Providers Care Service Correspondent Name Role Phone Ketan Steel MD Primary Care Provider Maribel Dodge Unavailable [phone] Allergies Allergen (clinical drug ingredient) Drug/Non Drug Allergy documented on EMR Reaction Allergy Type Onset Date Status codeine Codeine Nausea Drug Allergy Active Results Component Value Reference Range Notes Urinalysis Reviewed date:07/23/2024 02:02:12 PM Interpretation: Performing Lab: Notes/Report: PH 5.0 PROTEIN Neg GLUCOSE Neg BLOOD Neg Reason For Referral No Information Medications Medication SIG (Take, Route, Frequency, Duration) Notes Start Date End Date Status Estradiol Vaginal Cream 0.01% 1 Gram to the affected area Vaginal/Vulva Twice a week for 90 Days 07/23/2024 Active metroNIDAZOLE 0.75 % 1 applicatorful at bedtime Vaginal ONCE A NIGHT for 5 days 07/23/2024 Active Multi Vitamin Active Rosuvastatin Calcium 10 MG Oral for 90 Active Lisinopril-hydroCHLOROthia zide 10-12.5 MG 1 tablet Orally Once a day Active Terconazole 0.8 % 1 applicatorful at b edtime Vaginal Once a day for 3 days 08/08/2024 Active Social History Tobacco Use: Social History [...] Problem Status W/U Status Risk Notes Problem Postmenopausal atrophic vaginitis (71451832) Postmenopausal atrophic vaginitis (N95.2) Active confirmed Problem Menopause (983261297) Menopausal and female climacteric states (N95.1) Active confirmed Problem Benign essential hypertension (9010408) Essential hypertension, benign (401.1) Active confirmed Major Problem Dysplasia of cervix (44549969) Dysplasia of cervix, unspecified (622.10) Active confirmed Diag Problem Menopausal symptom (63111670) Symptomatic menopausal or female climacteric states (627.2) Active confirmed Diag Problem Gynecological examination normal (117519153702006) Routine gynecological examination (V72.31) Active confirmed Major Problem Screening for malignant neoplasm of colon (767070764) Special screening for malignant neoplasms, colon (V76.51) Active confirmed Major Vital Signs Temperature 97.9 degrees Fahrenheit 07/23/2024 Blood pressure diastolic 76 mm Hg 07/23/2024 Height 62.5 in 07/23/2024 Blood pressure systolic 118 mm Hg 07/23/2024 Weight 130 lbs 07/23/2024 BMI 23.4 kg/m2 07/23/2024 Encounters Encounter Location Date Provider Diagnosis [address] [address] 05/08/2024 Maribel Sparrow Menopausal and femal e climacteric states N95.[address] [address] 07/23/2024 Maribel Sparrow Encounter for gynecological examination (general) (routine) without abnormal findings Z01.419 ; Encounter for screening mammogram for malignant neoplasm of breast Z12.31 ; Hormone replacement therapy Z79.890 ; Acute vaginitis N76.0 ; Postmenopausal atrophic vaginitis N95.2 and Other specified disorders of bone density and structure, multiple sites M85.[address] [address] 05/01/2024 Maribel Sparrow [address] [address] 05/08/2024 Maribel Sparrow [address] [address] 08/08/2024 Maribel Sparrow Assessments Encounter Date Diagnosis (ICD [...] TO EVEN TRY VEOZAH. DISCUSSED REFERRAL TO [facility] FOR MORE THOROUGH EVALUATION OF HER MENOPAUSAL SYMPTOMS AND TX OPTIONS INCLUDING ERT. PAT AGREED. WE WILL REFER HER. 07/23/2024 Encounter for gynecological examination (general) (routine) without abnormal findings (ICD-10 - Z01.419) NO MORE PAP TESTS. 07/23/2024 Encounter for screening mammogram for malignant neoplasm of breast (ICD-10 - Z12.31) REGULAR MAMMOGRAMS AND SBE'S WERE RECOMMENDED. 07/23/2024 Hormone replacement therapy (ICD-10 - Z79.890) DISCUSSED BENEFITS AND RISKS OF HRT. CONITNUE CARE WITH [facility]. 07/23/2024 Acute vaginitis (ICD-10 - N76.0) DISCUSSED FINDINGS, DX AND TX OPTIONS. RX AND INSTRUCTIONS FOR METRONIDAZOLE GEL WERE GIVEN. RECURRENT NATURE OF CONDITION WAS EMPHASIZED. 07/23/2024 Postmenopausal atrophic vaginitis (ICD-10 - N95.2) DISCUSSED FINDINGS, DX AND TX OPTIONS. DISCUSSED INTRAVAGINAL ESTROGEN, ITS BENEFITS AND RISKS. PAT AGREED TO TRY. RX AND INSTRUCTIONS FOR ESTRADIOL CREAM WERE GIVEN. 07/23/2024 Other specified disorders of bone density and structure, multiple sites (ICD-10 - M85.89) DISCUSSED HER LAST BMD RESULTS AND MILD OSTEOPENIA AND ITS IMPACT ON HER HEALTH. ADEQUATE CALCIUM AND VIT D. WEIGHT BEARING EXERCISES. REPEAT BMD IN 2026. Plan Of Treatment Pending Test Test Name Order Date MAMMOGRAM, SCREENING 03/09/2021 MAMMOGRAM, SCREENING 03/16/2022 MAMMOGRAM, SCREENING 03/27/2023 MAMMOGRAM, SCREENING 07/23/2024 MAMMOGRAM, SCREENING 01/27/2015 Urinalysis 07/26/2017 BONE DENSITY 03/27/2023 MM Digital Mammo Screening 03/08/2020 MM Digital Mammo Screening 03/09/2021 MM Digital Mammo Screening 03/16/2022 MM Digital Mammo Screening 07/23/2024 MM Digital Mammo Screening 03/27/2023 Next Appt Details Provider Name:Maribel quiroz, 07/28/2025 08:20:00 AM, [address], [address], [place], [address], Insurance Providers Payer Name Payer Address Payer Phone Subscriber Number Group Number Insured Name Patient Relationship to Insured Coverage Start Date Coverage End Date [employer] [place] [address] [address] [place] [address] [id number] NATHALIA DOUGLAS Self - patient is the insured Medical (General) History Medical History History ICD Code Dysplasia of cervix uteri, unspecified N 87.9 Menopausal and female climacteric states N95.1 Essential (primary) hypertension I10 Hematocolpos N89.7 Hormone replacement therapy (postmenopau heaven) Z79.890 Other specified disorders of bone densit y and structure, multiple sites M85.89 Surgical History Surgery Date(Month/Year) Colonoscopy Hysterectomy x 2 [place] teeth Hospitalization History Reason Date(Month/Year) See Surgical Hx Child
[2024-09-24 10:24] LABS: Anion Gap 12 (12-20); Blood Urea Nitrogen 16 mg/dL (9-16); Calcium 9.7 mg/dL (8.4-10.2); Carbon Dioxide 26 mmol/L (22-29); Chloride 105 mmol/L (96-108); Estimated Glomerular Filt Rate > 60; Glucose Random 98 mg/dL (60-115); Potassium 4.2 mmol/L (3.3-5.1); Sodium 139 mmol/L (135-145)
== END 2024-09-24 09:09 | disposition home or self-care (01) ==
LOC: HO.LAB 09:08
PROVIDERS: PCP Internal Medicine; Visit Provider Internal Medicine
DX: I10 Essential (primary) hypertension (principal)
CPT/HCPCS: 36415; 80048